=== PATIENT | male | born 1965 | race Caucasian/White ===

== ENCOUNTER → 2018-11-20 08:35 | Outpatient (CLI) | payer BC, SELFPAY ==
--- NOTE | 2018-11-20 08:52 | EKG12_ITS ---
Test Reason : PRE-OP Blood Pressure : / mmHG Vent. Rate : 064 BPM Atrial Rate : 064 BPM P-R Int : 176 ms QRS Dur : 100 ms QT Int : 412 ms P-R-T Axes : 024 -18 000 degrees QTc Int : 425 ms Normal sinus rhythm Moderate voltage criteria for LVH, may be normal variant Borderline ECG Confirmed by SAUL ORLANDO ([id number]), editor news DENYS MIRANDA ([id number]) on 11/24/2018 2:20:47 PM Referred By: Jagdeep Perry Confirmed By:JACKSON ORLANDO
[2018-11-20 09:18] LABS: Hematocrit 43.4 % (40-54); Hemoglobin 15.5 g/dl (13.0-16.5); Mean Corp Hgb Conc 35.7 g/gl (32-36); Mean Corpuscular Hgb 31.2 pg (27.0-32.0); Mean Corpuscular Volume 87.3 fL (80-94); Mean Platelet Vol. 9.1 fl (6.2-12.0); Platelet Count 349 K/mm3 (150-450); RBC Distribution Width CV 13.2 % (11.6-14.6); RBC Distribution Width SD 41.7 fl (35.1-43.9); Red Blood Count 4.97 M/mm3 (4.6-6.2); Scan Indicated on CBC? Y/N NO; White Blood Count 7.5 K/mm3 (4.4-11.0)
[2018-11-20 09:45] LABS: Anion Gap 7 (5-15); BUN 17 mg/dL (7-18); BUN/Creat Ratio 18.3 RATIO (10-20); Calcium,Total 8.8 mg/dL (8.5-10.1); Chloride 107 mmol/L (98-107); Creatinine, Serum 0.93 mg/dL (0.70-1.30); EST Glomerular Filtration Rate 89 mL/min (>60); Est Glom Filt Rate - Afr Amer 108 mL/min (>60); Glucose 110 mg/dL (74-106); PSA,Total- Diagnostic 0.33 ng/mL (0.0-4.0); Sodium Level 141 mmol/L (136-145)
== END ==
PROVIDERS: Family Provider Preventive Medicine Occupational Medicine; PCP Preventive Medicine Occupational Medicine; Referring Provider Urology; Visit Provider Urology
DX: N43.40 Spermatocele of epididymis, unspecified (principal)
CPT/HCPCS: 36415; 80048; 84153; 85027; 93005

== ENCOUNTER → 2022-11-06 | Outpatient (CLI) | payer OTHER, SELFPAY ==
--- NOTE | 2022-11-06 16:59 | MRI_ITS ---
STUDY: MRI LUMBAR SPINE WITHOUT CONTRAST REASON FOR EXAM: Male, 57 years old. LBP,RADICULOPATHY TECHNIQUE: Standardized fat and water weighted pulse sequences were obtained in the sagittal and axial planes. COMPARISON: None FINDINGS: T12-L1: Normal endplates. Normal disc height, hydration and morphology. Normal bilateral facet joints. Normal central canal and bilateral lateral recesses. Normal bilateral intervertebral neural foramina. Normal lumbar lordosis. There is no substantial scoliosis. Normal conus medullaris that terminates at the T12. No evidence of increased or osseous signal to suggest osseous injury. L1-2: Disc desiccation and mild decreased disc space is present. No significant disc bulge, spinal canal narrowing or foraminal narrowing. L2-3: Disc desiccation and preserved disc space with minimal circumferential disc bulge and facet arthropathy resulting in minimal spinal canal narrowing. No significant foraminal narrowing. L3-4: Disc desiccation and minimal circumferential disc bulge with noted facet hypertrophy and ligamentum flavum hypertrophy resulting in severe spinal canal narrowing and lateral recess narrowing. No significant foraminal narrowing. L4-5: Disc desiccation and mild decreased disc space is present with circumferential disc bulge and minimal small midline annular fissure. There is facet arthropathy and ligamentum flavum arthropathy resulting in severe spinal canal narrowing with mild left foraminal narrowing. L5-S1: Disc desiccation and decreased disc space with broad-based disc bulge resulting in mild bilateral foraminal narrowing with no significant spinal canal narrowing. Normal visualized sacral ala. Normal visualized paraspinous soft tissue structures. MRI/Spine Lumbar (Routine) IMPRESSION: 1. L4-5 circumferential disc bulge and facet arthropathy/hypertrophy resulting in severe spinal canal narrowing, clinically correlate for descending L4 radiculopathy. 2. L3-4 severe spinal canal narrowing and lateral recess narrowing due to facet hypertrophy/ligamentum flavum arthropathy, clinically correlate for descending L3 radiculopathy. Additional degenerative changes as above. Electronically Signed: Bishop Miller DO at 16:57 EDT ,
== END | disposition home or self-care (01) ==
LOC: MRI 16:57
PROVIDERS: PCP Preventive Medicine Occupational Medicine; Visit Provider Preventive Medicine Occupational Medicine
DX: M54.16 Radiculopathy, lumbar region (principal); G95.19 Other vascular myelopathies
CPT/HCPCS: 72148

== ENCOUNTER → 2023-07-22 | Outpatient (CLI) | payer OTHER, SELFPAY ==
[2023-07-22 08:56] LABS: Hematocrit 42.4 % (40-54); Hemoglobin 14.7 g/dL (13.0-16.5); Mean Corp Hgb Conc 34.7 g/dL (32-36); Mean Corpuscular Hgb 31.3 pg (27.0-32.0); Mean Corpuscular Volume 90.2 fL (80-94); Platelet Count 335 K/mm3 (150-450); RBC Distribution Width CV 12.2 % (11.6-14.6); RBC Distribution Width SD 40.2 fl (35.1-43.9); White Blood Count 7.7 K/mm3 (4.4-11.0)
[2023-07-22 10:08] LABS: ALB/GLOB Ratio 1.2 RATIO (0.9-2.4); AST(SGOT) 14 U/L (15-37); Alanine Aminotransfer ALT/SGPT 29 U/L (16-61); Albumin, Serum 3.7 g/dL (3.2-5.0); Alkaline Phosphatase 79 U/L (45-117); Anion Gap 6 (5-15); BUN 23 mg/dL (7-18); BUN/Creat Ratio 27.3 RATIO (10-20); Calcium,Total 9.3 mg/dL (8.5-10.1); Chloride 111 mmol/L (98-107); Cholesterol 204 mg/dL (200); Creatinine, Serum 0.84 mg/dL (0.70-1.30); EST Glomerular Filtration Rate 99 mL/min (>60); Est Glom Filt Rate - Afr Amer 119 mL/min (>60); Globulin 3.2 g/dL (2.2-4.2); Glucose 116 mg/dL (74-106); High Density Lipoprotein 49 mg/dL; PSA,Total - Annual Screen 0.45 ng/mL (0.00-4.00); Protein, Total 6.9 g/dL (6.4-8.2); Sodium Level 140 mmol/L (136-145); Triglycerides 184 mg/dL; Very Low Density Lipoprotein 37 mg/dL (5-40)
== END | disposition home or self-care (01) ==
LOC: LAB 08:09
PROVIDERS: PCP Preventive Medicine Occupational Medicine; Referring Provider Preventive Medicine Occupational Medicine; Visit Provider Preventive Medicine Occupational Medicine
DX: Z12.5 Encounter for screening for malignant neoplasm of prostate (principal); I10 Essential (primary) hypertension; Z13.220 Encounter for screening for lipoid disorders
CPT/HCPCS: 36415; 80053; 80061; 84153; 85027; G0103

== ENCOUNTER 2023-08-15 05:52 | Inpatient (IN) | payer OTHER, SELFPAY ==
--- NOTE | 2023-07-31 07:50 | RAD_ITS ---
STUDY: XR Chest 2 Views 07/31/2023 7:58 AM REASON FOR EXAM: Male, 58 years old. PREOP COMPARISON: None TECHNIQUE: XR Chest 2 Views FINDINGS: There is no demonstrated pleural abnormality. Normal heart size. Normal mediastinum. Normal masoud. Prominent appearing increased interstitial lung markings. Normal visualized pulmonary arteries. There is atherosclerotic calcification of the aortic arch with tortuosity. There are diffuse degenerative changes of the visualized thoracic spine. There is degenerative osteoarthritis of the bilateral shoulders. There are no acute findings of the upper abdomen. RAD/Chest PA and Lateral IMPRESSION: There are no acute findings. Electronically Signed: Kayden Nance MD at 8:31 EST ,
[2023-07-31 08:38] LABS: Partial Thromboplast Time 25.8 Seconds (24.1-36.2)
[2023-07-31 08:41] LABS: International Normalized Ratio 1.1
--- NOTE | 2023-08-08 06:45 | PCM.HP.BLA ---
History and Physical History and Physical? Patient Name: Javy Wolf : 1965 From:? MAC TOLLIVER PA-C? DATE OF PRE-OPERATIVE EXAM: 08/07/2023 DATE OF SURGERY:? 08/15/2023 SCHEDULED PROCEDURE:? Lumbar 3-lumbar 4, lumbar 4-lumbar 5 posterior lumbar interbody fusion, decompression, posterior spinal fusion with instrumentation and use of allograft HISTORY OF PRESENT ILLNESS: This is a 57-year-old male who is been having ongoing low back pain for several years.? He is getting paresthesias radiating into the bilateral lower extremities.? He has been followed and treated by Dr. Edwin Alarcon with conservative measures.? Patient gets episodic pain throughout the lumbar region that is worse with activities.? Paresthesias in the bilateral posterior thighs and calf regions with prolonged sitting.? He denies any acute loss of bowel or bladder control.? He has tried oral medications including Tylenol and diclofenac.? He has been through formal physical therapy.? He has had 2 previous caudal epidural steroid injections by Dr. Edwin Alarcon on November 27, 2022 and February 08, 2023.? Patient has also attempted Medrol Dosepak with minimal relief.? Despite conservative measures patient has continued to have ongoing symptoms.? After failing conservative measures and discussing all treatment options with Dr. Edwin Alarcon, the patient would like to proceed with the above surgical intervention.? Patient has medical history pertinent for hypertension.? He denies any recent chest pain, shortness of breath, fevers chills or recent infections.? He denies past history of DVT or pulmonary embolisms.? He has obtain surgical clearance from Dr. Crane and has had preoperative lab work and EKG testing. REVIEW OF SYSTEMS: Review Of Systems: Constitutional: Denies anorexia, anxiety, change in appetite, fever, difficulty sleeping, weight change. Cardiovasular: Denies chest pain, heart murmur, irregular heartbeat and peripheral vascular disease. Respiratory: Denies asthma, cough, pneumonia, sleep apnea, shortness of breath, tuberculosis and wheezing. Gastrointestinal: Denies constipation, diarrhea, heartburn, nausea, rectal itching, bloody stools and vomiting. Genitourinary: Denies incontinence. Musculoskeletal: Reports gait disturbance, pain, trouble walking and weakness. Skin: Denies Raynaud's, history of shingles and tattoo. Neurological: Reports numbness/tingling but denies ambulatory dysfunction, dizziness and tremor. Psychiatric: Denies anxiety, depression, insomnia, mental illness and stress. Hematologic/Lymphatic: Denies anemia, bleeding/bruising tendency and past transfusion. Reviewed, no changes. PAST MEDICAL HISTORY: Advance Care Plan: No Advance Directives Effective Date: 11/23/2022 Past Medical History: Medical Problems: High Blood Pressure Accidents: Fracture - (1979) RT WRIST? Sports Related Injury - BILAT KNEE RT SHOULDER RT ANKLE Surgical Hx: Arthroscopy - (1995) LT KNEE Rotator Cuff Repair-RT - (2004) Knee Replacement RT - (2019) [facility]? Knee Arthroscopy LT - (1996) [facility] MULTIPLE SURGERY Knee Arthroscopy RT - (1996) [facility] MULTIPLE SURGERIES? Shoulder Arthroscopy LT - (1996) [facility] MULTIPLE SURGERIES? Shoulder Arthroscopy RT - (1996) [facility] MULTIPLE SURGERIES? ACL Repair - (1996) [facility] Caudal Epidural Steroid Injection - (11/27/2022) Dr Nena Alarcon @ [facility] Caudal Epidural Steroid Injection - (02/08/2023) Dr Nena Alarcon @ [facility] Hernia Repair - (1996) [facility] Anesthesia Complications: None Assistive Devices: Glasses Reviewed and updated. SOCIAL HISTORY: Social History: Marital: .Occupation: [employer].Work Status: Currently Working.Hand Dominance: Right-Handed. Personal Habits:? Cigarette Use: Never Smoked Cigarettes.Smokeless Tobacco: Never Used Smokeless Tobacco.E-Cigarette Use: Never used.Alcohol: Occasionally.Drug Use: Denies Use.Enjoy Exercising: Exercises 1-3 X/Week. Reviewed, no changes. VITALS: Ht: 73.3 Wt: 236lb Wt k.050 BMI: 30.9 BP: 140/86 Pulse: 70 Resp: 14 T: 97.9 T: 36.6C Pain Level: 6 O2SatR: 98 ALLERGIES: No Known Drug Allergy? MEDICATIONS: Losartan Potassium 100 mg take 1 tablet by mouth every day, Amlodipine Besylate 2.5 mg take 1 tablet by mouth at bedtime PRE-OP EXAM:? General appearance:NORMAL? ? ? Other: Eyes: Conjunctivae and lids: NORMAL? Pupils: ERR Ears, Nose, Mouth, and Throat: NORMAL? Other: Inspection of lips, teeth and gums: NORMAL? ?Other: Neck: Examination of neck: no masses noted. Respiratory: Assessment of respiratory effort: NORMAL? ?Other: ?Auscultation of lungs: clear to auscultation no wheezes, rhonchi or rales. Cardiovascular:? Auscultation of heart: regular rate and rhythm, no murmurs, gallops or rubs. PHYSICAL EXAMINATION: On exam this is a pleasant 58-year-old male in no acute distress.? He does have tenderness to palpation throughout the lumbar spine.? He does continue to have paresthesias in the lower extremity.? Increased pain with lumbar flexion, extension and rotation. IMAGING STUDIES: X-rays of the lumbar spine reveals mild scoliotic form of the lumbar spine about 10 apex right at L4 no gross instability.? Degenerative changes at multiple levels with loss of disc height, disc osteophyte complex and facet arthrosis. Previous MRI of the lumbar spine shows L5-S1 moderate loss of disc height and signal with minimal posterior disc bulge with mild facet arthrosis and minimal subarticular stenosis.? L4-L5 there is severe loss of disc height and signal with broad posterior disc bulge and severe central canal stenosis.? There is severe facet arthrosis and severe subarticular stenosis with mild foraminal stenosis.? L3-L4 there is moderate to severe loss of disc height and signal with mild posterior disc bulge with severe central canal stenosis and severe facet arthrosis and severe some articular stenosis.? L2-L3 and L1-L2 minimal loss of disc height and signal with minimal posterior disc bulge but no central canal stenosis. IMPRESSION: 1.? Lumbar degenerative disc disease with stenosis with radiculopathy 2.? Hypertension 3.? Obesity with BMI 30.9 PLAN: Dr. Edwin Alarcon did discuss and review with the patient all treatment options including surgical versus nonsurgical options.? Patient does wish to proceed with the above-stated procedure.? Potential risks, benefits, and complications of the procedure were discussed in detail including but not limited to , infection, nerve and blood vessel damage, persistent pain, numbness, tingling, paresthesias, blood clot, pulmonary embolism, and requirement for possible further surgery.? The patient expressed full understanding and has no further questions for the doctor.? Patient does agree to proceed with the above-stated procedure and has signed the surgery consent form. POST-OP MEDICATION PLAN: Pain Medications: Postoperative pain regimen will be initiated by Dr. Edwin Alarcon at the hospital.? Patient also has a lumbar back brace that he was instructed to bring to day of surgery.? Patient was also instructed no nonsteroidal anti-inflammatories 1 week prior to surgery and 12 weeks following surgery. This dictation was created using voice recognition software. Phonetic and/or grammatical errors may exist. ___? I have re-examined the patient.? There are no clinical changes since date of exam. ___? See progress notes for changes. ___? Dictated on admission Date: ? ? ?Time: Signature:
[2023-08-15] VITALS (16 sets, daily range): BP systolic 81–131; BP diastolic 54–98; PULSE 71–99; RESP 15–18; TEMP 36.1–36.9; O2SAT 92–98; BMI 29.9
--- OUTSIDE RECORDS SUMMARY | 2023-08-15 05:55 | XMS RPT_ITS | CCD ---
Author Name Unknown Address [address] [place] [address] Organization [facility] Care Team Providers Care Paediatric Physiotherapist Name Role Phone NENO JIM Unavailable Unavailable MENDY JACOBO (ELMER) Unavailable Unavailable MENDY JACOBO (ELMER) Unavailable Unavailable NENO JIM Unavailable Unavailable NENO JIM Unavailable Unavailable JERRY CRANE DO Primary Care Physician [phone] Jerry Crane Primary Care Provider [phone] Medications Current Medications Medication Drug Class(es) Dates Sig (Normalized) Sig (Original) Albuterol (Eqv-Proventil HFA) 90 mcg/inh inhalation aerosol (1 source) Start: 09-29-2021 take 2 puff(s) by mouth every four to six hours Albuterol (Eqv-Proventil HFA) 90 mcg/inh inhalation aerosol INHALE 2 PUFFS BY MOUTH EVERY 4 TO 6 HOURS Start Date: 09/29/21 Status: Ordered ibuprofen 600 mg oral tablet (1 source) Nonsteroidal Anti-inflammatory Drug Start: 12-02-2020 ibuprofen 600 mg oral tablet Dose : 600 mg = 1 tab(s), Oral, QID, PRN Pain, # 120 tab(s), 2 Refill(s), Pharmacy: [facility], 186, cm, 12/02/20 15:37:00 EDT, Height, kg, 12/02/20 15:37:00 EDT, Dosing Weight Start Date: 12/02/20 Status: Ordered meloxicam 15 mg oral tablet (1 source) Nonsteroidal Anti-inflammatory Drug Start: 12-05-2021 End: 01-04-2022 Mobic 15 mg oral tablet Dose : 15 mg = 1 tab(s), Oral, qDay, # 30 tab(s), 0 Refill(s), Pharmacy: [facility]/pharmacy #[id number], Lumbar back pain with radiculopathy affecting lower extremity, 184.5, cm, 12/05/21 16:22:00 EDT, Height Start Date: 12/05/21 Stop Date: 01/04/22 Status: Ordered Completed/Discontinued Medications Medication Drug Class(es) Dates Sig (Normalized) Sig (Original) amoxicillin 500 mg oral tablet (1 source) Penicillin-class Antibacterial Start: 12-10-2018 Amoxicillin 500 mg tablet Indications: Status post total knee replacement, unspecified laterality Take 4 tabs, 2000 mg, 1 hour prior to dental procedure. 4 tablet 2 12/10/2018 Active Problems Active Problems Problem Classification Problem Date Documented Da te Episodic/Chronic Essential hypertension (1 source) Essential hypertension 04-10-2019 Chronic Open wounds of head; neck; and trunk (1 source) Scalp laceration; Translations: [Laceration without foreign body of scalp, initial encounter] Episodic Osteoarthritis (2 sources) Unilateral primary osteoarthritis, left knee; Translations: [Osteoarthritis of right knee joint] Onset: 10-17-2015 10-17-2015 Chronic Other circulatory disease (1 source) Elevated blood-pressure reading, without diagnosis of hypertension; Translations: [Elevated blood-pressure reading, without diagnosis of hypertension] Onset: 06-25-2018 Episodic Other connective tissue disease (1 source) Presence of left artificial knee joint; Translations: [Presence of left artificial knee joint] Onset: 07-02-2018 Chronic Other connective tissue disease (1 source) History of left total knee replacement; Translations: [Presence of left artificial knee joint] Onset: 07-21-2018 07-21-2018 Chronic Other connective tissue disease (1 source) Cramp in lower limb 12-02-2020 Episodic Other connective tissue disease (1 source) Dupuytren's contracture 04-10-2019 Episodic Other male genital disorders (1 source) 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 Pneumonia (except that caused by tuberculosis or sexually transmitted disease) (1 source) Pneumonia 11-10-2021 Episodic Spondylosis; intervertebral disc disorders; other back problems (1 source) Low back pain 12-05-2021 Episodic Unclassified (5 sources) Patient encounter status 03-04-2020 Past or Other Problems Problem Classification Problem Date Documented Da te Episodic/Chronic Joint disorders and dislocations; trauma-related (1 source) Acute meniscal tear, medial; Translations: [Complex tear of medial meniscus, current injury, right knee, initial encounter] Onset: 10-17-2015 10-17-2015 Episodic Other circulatory disease (1 source) Elevated blood-pressure reading without diagnosis of hypertension; Translations: [Elevated blood-pressure reading, without diagnosis of hypertension] Onset: 06-25-2018 06-25-2018 Episodic Other non-traumatic joint disorders (1 source) Pain in left knee; Translations: [Pain in joint, lower leg] Onset: 12-01-2015 12-01-2015 Episodic Results Test Name Value Interpretation Reference Range Facil ity Vital Signs Date Time Vital Sign Value Performing Clinician Stuart boykin 01-12-2022 15:30-0400 Body temperature 97.81 [degF] Raine Alejandre APRN.CNP Work Phone: [facility] 01-12-2022 15:30-0400 Body weight 102.69 kg Raine Alejandre APRN.[employer] Work Phone: [facility] 01-12-2022 15:30-0400 Diastolic blood pressure 84 mm[Hg] Raine Alejandre APRN.[employer] Work Phone: [facility] 01-12-2022 15:30-0400 Heart rate 95 /min Raine Alejandre APRN.[employer] Work Phone: [facility] 01-12-2022 15:30-0400 Respiratory rate 20 /min Raine Alejandre APRN.[employer] Work Phone: [facility] 01-12-2022 15:30-0400 SaO2% (BldA) [Mass fraction] 97 % Raine Alejandre APRN.[employer] Work Phone: [facility] 01-12-2022 15:30-0400 Systolic blood pressure 138 mm[Hg] Raine Alejandre APRN.CNP Work Phone: [facility] Encounters Encounter Date Encounter Type Care Provider Facility Start: 01-12-2022 End: 01-12-2022 Patient encounter procedure Raine Alejandre APRN.[employer] Work Phone: [facility] Procedures Date Procedure Procedure Detail Performing Clinician Start: 07-02-2018 Arthroplasty of knee RI PRITIAbe ROMERO GUITAR TEACHER - [employer] Plan of Treatment Date Care Activity Detail Author Start: 01-13-2032 Urine microalbumin profile DTA P,TDAP,TD (2 - Td or Tdap) [facility] Start: 03-15-2022 Influenza vaccination INFLUENZA (#1) [facility] Start: 07-03-2021 DIABETES SCREEN DIABETES SCREEN [facility] Start: 03-30-2021 COVID-19 VACCINE (3 - Booster for Pfizer series) COVID-19 VACCINE (3 - Booster for Pfizer series) [facility] Start: 2018 PROSTATE CANCER SCRE ENING DISCUSSION PROSTATE CANCER SCREENING DISCUSSION [facility] Start: 2013 SHINGRIX VACCINE (1 of 2) SHINGRIX V ACCINE (1 of 2) [facility] Start: 2008 COLOGUARD (FIT-DNA) COLOGUARD (FIT-D NA) [facility] Start: 2008 Colonoscopy COLONOSCOPY [facility] Start: 2008 COLORECTAL CANCER SCREENING COLORECTAL CANCER SCREENING [facility] Start: [address] COLONOGRAPHY [facility] Start: 2008 FECAL OCCULT BLOOD FECAL OCCULT BLOO D [facility] Start: 2008 SIGMOIDOSCOPY SIGMOIDOSCOPY [facility] Start: 1998 LIPID SCREEN LIPID SCREEN [facility] Start: 1981 HEPATITIS C SCREENING HEPATITIS C SC REENING [facility] Start: 1981 HIV SCREENING HIV SCREENING [facility] Start: 1975 Adult depression scr eening assessment DEPRESSION SCREENING [facility] Immunizations Immunization Date Immunization Notes Care Provider Fa lora 01-12-2022 tetanus toxoid, redu rima diphtheria toxoid, and acellular pertussis vaccine, adsorbed Raine Alejandre APRN.[employer] Work Phone: [facility] 03-01-2021 pneumococcal conjuga te vaccine, 13 valent LEAH ROMERO APRN - [employer] [facility] 10-28-2020 SARS-CoV-2 mRNA (tozinameran) vaccine LEAH ROMERO GUITAR TEACHER - [employer] [facility] 10-07-2020 SARS-CoV-2 mRNA (tozinameran) vaccine LEAH ROMERO GUITAR TEACHER - [employer] [facility] 05-21-2017 influenza virus vacc ine, unspecified formulation LEAH ROMERO GUITAR TEACHER - [employer] [facility] 09-11-2010 Human Papillomavirus Quadval LEAH ROMERO GUITAR TEACHER - [employer] [facility] 05-08-2010 Human Papillomavirus Quadval LEAH ROMERO GUITAR TEACHER - [employer] [facility] 02-25-2010 Human Papillomavirus Quadval LEAH ROMERO GUITAR TEACHER - [employer] [facility] 01-24-2010 tetanus toxoid, redu rima diphtheria toxoid, and acellular pertussis vaccine, adsorbed LEAH ROMERO GUITAR TEACHER - [employer] [facility] 06-01-2009 influenza virus vacc ine, H1N1, live LEAH ROMERO GUITAR TEACHER - [employer] [facility] 10-27-2002 measles/mumps/rubell a virus vaccine LEAH ROMERO GUITAR TEACHER - [employer] [facility] 10-27-2002 poliovirus vaccine, inactivated LEAH ROMERO GUITAR TEACHER - [employer] [facility] 02-08-2000 diphtheria, tetanus toxoids and acellular pertussis vaccine, unspecified formulation LEAH ROMERO GUITAR TEACHER - [employer] [facility] 02-08-2000 haemophilus influenz ae type b vaccine, PRP-T conjugate ELAH ROMERO GUITAR TEACHER - [facility] 02-08-2000 poliovirus vaccine, inactivated LEAH ROMERO GUITAR TEACHER - [employer] [facility] 07-27-1998 hepatitis B pediatri c vaccine LEAH ROMERO GUITAR TEACHER - [facility] 07-27-1998 measles/mumps/rubell a virus vaccine LEAH ROMERO GUITAR TEACHER - [facility] 11-24-1997 diphtheria, tetanus toxoids and acellular pertussis vaccine, unspecified formulation LEAH ROMERO GUITAR TEACHER - [facility] 11-24-1997 haemophilus influenz ae type b vaccine, HbOC conjugate LEAH ROMERO GUITAR TEACHER - [employer] [facility] 09-13-1997 diphtheria, tetanus toxoids and acellular pertussis vaccine, unspecified formulation LEAH ROMERO GUITAR TEACHER - [employer] [facility] 09-13-1997 haemophilus influenz ae type b vaccine, HbOC conjugate LEAH ROMERO GUITAR TEACHER - [employer] [facility] 09-13-1997 poliovirus vaccine, inactivated LEAH ROMERO GUITAR TEACHER - [employer] [facility] 07-22-1997 diphtheria, tetanus toxoids and acellular pertussis vaccine, unspecified formulation LEAH ROMERO GUITAR TEACHER - [employer] [facility] 07-22-1997 haemophilus influenz ae type b vaccine, HbOC conjugate LEAH ROMERO GUITAR TEACHER - [employer] [facility] 07-22-1997 hepatitis B pediatri c vaccine LEAH ROMERO GUITAR TEACHER - [employer] [facility] 07-22-1997 poliovirus vaccine, inactivated LEAH ROMERO GUITAR TEACHER - [employer] [facility] 05-27-1997 hepatitis B pediatri c vaccine LEAH ROMERO GUITAR TEACHER - [employer] [facility] Payers Date Payer Category Payer Unknown MMO MMO [employer] [id number] 2019-Present [phone] [address] [place] [address] O [id number] Social History Date Type Detail Facility Start: 08-11-2015 End: 04-10-2019 Tobacco smoking status Never smoked tobacco (finding) [facility] Sex Assigned At Male [facility] Start: 08-11-2015 Tobacco use and exposure Smokeless tobacco non-user [facility] Start: 01-12-2022 Alcohol intake Current drinke r of alcohol (finding) [facility] Start: 06-25-2018 History SDOH Alcohol Comment a few beers a month [facility] Start: 1965 Sex Assigned At Not on file [facility] Start: 01-02-2022 End: 01-12-2022 Exposure to SARS-CoV-2 (event) Not sure [facility] Work Phone: Medical Equipment Procedure Code Equipment Code Equipment Origin al Text Equipment Identifier Dates Component Tritan ium 38mm Metal 11mm Patellar Asymmetric Knee - [id number] Start: 07-02-2018 Insert Triathlon 6 X3 11mm Tibial Condylar Stabilized Knee - [id number] Start: 07-02-2018 Component Triath rené 6 Pa Femoral Cruciate Retain Bead Knee Left - [id number] Start: 07-02-2018 Baseplate Triath rené 6 Tritanium [id number] Tibial 4 Cruciform Peg Keel Knee - [id number] Start: 07-02-2018 Progress note 01-20-2022 Note Date & Type Note Facility 01-20-2022 Note HNO ID: [id number] Author: José Miguel Verdugo APRN.[employer] Service: ? Author Type: Nurse Practitioner Type: Progress Notes Filed: 01/20/2022 9:34 AM Note Text: Subjective HPI HPI Katy Wolf is a 56 year old male who presents today for staple removal from head. Placed 8 days ago. Patient report doing well. Denies fever, drainage from site. .Patient presents with: Suture Removal: staple removal from head, 4 ryder placed 8 days ago PAST MEDICAL HISTORY Diagnosis Date - Elevated BP without diagnosis of hypertension 06/25/2018 - Osteoarthritis of right knee 10/17/2015 - Primary osteoarthritis of left knee 10/17/2015 PAST SURGICAL HISTORY Procedure Laterality Date - ARTHRS KNE SURG W/MENISCECTOMY MED/LAT W/SHVG Right 10/21/2015 Right knee arthroscopy - ARTHRS KNEE DEBRIDEMENT/SHAVING ARTCLR CRTLG Right 10/21/2015 Medial and PF chondroplasties - PAST SURGICAL HISTORY OF Bilateral Bilateral shoulder arthroscopy - PAST SURGICAL HISTORY OF Bilateral Bilateral knee arthroscopy ALLERGIES Patient has no known allergies. MEDICATIONS losartan (COZAAR) 100 mg tablet Take 100 mg by mouth once daily. Amoxicillin 500 mg tablet Take 4 tabs, 2000 mg, 1 hour prior to dental procedure. lisinopril (ZESTRIL, PRINIVIL) 20 mg tablet Take 20 mg by mouth once daily. HYDROmorphone (DILAUDID) 2 mg tablet Take 1-2 tablets by mouth every 4 hours as needed for Pain (post op acute pain) for up to 7 days. Patient had orthopedic surgery, and will require greater than 30 MEDD to treat post operative pain (ICD-10 code G89.18).Earliest Fill Date: 07/10/18 aspirin, enteric coated (ASPIRIN, ENTERIC COATED) 325 mg EC tablet Take 1 tablet by mouth twice daily. FAMILY HISTORY Problem Relation Age of Onset - Diabetes Father IDDM - Arthritis Mother - other (heart murmur) Mother Social History Tobacco Use - Smoking status: Never Smoker - Smokeless tobacco: Never Used Vaping Use - Vaping Use: Never used Substance Use Topics - Alcohol use: Yes Comment: a few beers a month - Drug use: No ROS Objective Blood pressure 148/98, pulse 80, temperature 36.4 ?C (97.5 ?F), resp. rate 16, weight 104.3 kg (230 lb), SpO2 97 %. Physical Exam Constitutional: General: He is not in acute distress. Appearance: He is not toxic-appearing or diaphoretic. HENT: Head: Normocephalic and atraumatic. Pulmonary: Effort: Pulmonary effort is normal. No accessory muscle usage or respiratory distress. Neurological: Mental Status: He is alert and oriented to person, place, and time. ASSESSMENT/PLAN: 1. Encounter for staple removal - ICD9: V58.32, ICD10: Z48.02 Successful removal of ryder F/u for s/s infection/changing symptoms José Miguel Verdugo APRN.[employer] [facility] Progress note 01-12-2022 Note Date & Type Note Facility 01-12-2022 Note HNO ID: [id number] Author: Raine Alejandre APRN.[employer] Service: ? Author Type: Nurse Practitioner Type: Progress Notes Filed: 01/12/2022 4:10 PM Note Text: Subjective Katy Wolf is a 56 year old male who presents with a scalp laceration that occurred today. He reports he was putting up new stairs when they fell onto the top of his head. Denies LOC, dizziness, or confusion. Last tetanus immunization was in 2009. Review of Systems HENT: See HPI Musculoskeletal: Negative for back pain and neck pain. Neurological: Negative for dizziness, loss of consciousness and headaches. BP 138/84 Pulse 95 Temp 36.6 ?C (97.8 ?F) Resp 20 Wt 102.7 kg (226 lb 6.4 oz) SpO2 97% BMI 29.88 kg/m? PAST MEDICAL HISTORY Diagnosis Date - Elevated BP without diagnosis of hypertension 06/25/2018 - Osteoarthritis of right knee 10/17/2015 - Primary osteoarthritis of left knee 10/17/2015 PAST SURGICAL HISTORY Procedure Laterality Date - ARTHRS KNE SURG W/MENISCECTOMY MED/LAT W/SHVG Right 10/21/2015 Right knee arthroscopy - ARTHRS KNEE DEBRIDEMENT/SHAVING ARTCLR CRTLG Right 10/21/2015 Medial and PF chondroplasties - PAST SURGICAL HISTORY OF Bilateral Bilateral shoulder arthroscopy - PAST SURGICAL HISTORY OF Bilateral Bilateral knee arthroscopy ALLERGIES Patient has no known allergies. MEDICATIONS losartan (COZAAR) 100 mg tablet Take 100 mg by mouth once daily. Amoxicillin 500 mg tablet Take 4 tabs, 2000 mg, 1 hour prior to dental procedure. lisinopril (ZESTRIL, PRINIVIL) 20 mg tablet Take 20 mg by mouth once daily. HYDROmorphone (DILAUDID) 2 mg tablet Take 1-2 tablets by mouth every 4 hours as needed for Pain (post op acute pain) for up to 7 days. Patient had orthopedic surgery, and will require greater than 30 MEDD to treat post operative pain (ICD-10 code G89.18).Earliest Fill Date: 07/10/18 aspirin, enteric coated (ASPIRIN, ENTERIC COATED) 325 mg EC tablet Take 1 tablet by mouth twice daily. FAMILY HISTORY Problem Relation Age of Onset - Diabetes Father IDDM - Arthritis Mother - other (heart murmur) Mother Social History Tobacco Use - Smoking status: Never Smoker - Smokeless tobacco: Never Used Vaping Use - Vaping Use: Never used Substance Use Topics - Alcohol use: Yes Comment: a few beers a month - Drug use: No Objective Physical Exam Vitals and nursing note reviewed. Constitutional: Appearance: Normal appearance. HENT: Head: Eyes: Pupils: Pupils are equal, round, and reactive to light. Cardiovascular: Rate and Rhythm: Normal rate. Pulmonary: Effort: Pulmonary effort is normal. Musculoskeletal: Cervical back: Normal range of motion. Skin: General: Skin is warm. Findings: Laceration present. Neurological: Mental Status: He is alert and oriented to person, place, and time. Motor: Motor function is intact. Gait: Gait is intact. Wound cleansed with peroxide and all visible foreign material was removed. Surgicel placed in laceration due to bleeding. Wound edges reapproximated with 4 ryder. Return for staple removal in 5-7 days. ASSESSMENT/PLAN: 1. Laceration of scalp, initial encounter - ICD9: 873.0, ICD10: S01.01XA - Return for staple removal in 5-7 days. - Discussed red flag symptoms to report to ER for head injury as well as signs/sympotms of infection. - TDAP VACCINE AGE 7+ IM TERRY Marquez student TEACHING PROVIDER (Physician/PA/GUITAR TEACHER) NOTE OF PERSONAL INVOLVEMENT IN CARE: I have personally seen and examined the patient and performed the medical decision-making components. I have reviewed the Advanced Practice Registered Nurse (GUITAR TEACHER) Student's documentation and verified the findings in the note as written. Any additions or changes are noted in bold/italics. Signature: Raine Alejandre Date: 01/12/2022 Time: 4:07 PM [facility] History of Present illness Narrative 01-12-2022 Raine Alejandre APRN.[employer] - 01/12/2022 3:49 PM EDT Note Date & Type Note Facility 01-12-2022 History of Presen t illness Narrative Images from the original note were not included. Subjective Katy Wolf is a 56 year old male who presents with a scalp laceration that occurred today. He reports he was putting up new stairs when they fell onto the top of his head. Denies LOC, dizziness, or confusion. Last tetanus immunization was in 2009. Review of Systems HENT: See HPI Musculoskeletal: Negative for back pain and neck pain. Neurological: Negative for dizziness, loss of consciousness and headaches. BP 138/84 Pulse 95 Temp 36.6 C (97.8 F) Resp 20 Wt 102.7 kg (226 lb 6.4 oz) SpO2 97% BMI 29.88 kg/m PAST MEDICAL HISTORY Diagnosis Date Elevated BP without diagnosis of hypertension 06/25/2018 Osteoarthritis of right knee 10/17/2015 Primary osteoarthritis of left knee 10/17/2015 PAST SURGICAL HISTORY Procedure Laterality Date ARTHRS KNE SURG W/MENISCECTOMY MED/LAT W/SHVG Right 10/21/2015 Right knee arthroscopy ARTHRS KNEE DEBRIDEMENT/SHAVING ARTCLR CRTLG Right 10/21/2015 Medial and PF chondroplasties PAST SURGICAL HISTORY OF Bilateral Bilateral shoulder arthroscopy PAST SURGICAL HISTORY OF Bilateral Bilateral knee arthroscopy ALLERGIES Patient has no known allergies. MEDICATIONS losartan (COZAAR) 100 mg tablet Take 100 mg by mouth once daily. Amoxicillin 500 mg tablet Take 4 tabs, 2000 mg, 1 hour prior to dental procedure. lisinopril (ZESTRIL, PRINIVIL) 20 mg tablet Take 20 mg by mouth once daily. HYDROmorphone (DILAUDID) 2 mg tablet Take 1-2 tablets by mouth every 4 hours as needed for Pain (post op acute pain) for up to 7 days. Patient had orthopedic surgery, and will require greater than 30 MEDD to treat post operative pain (ICD-10 code G89.18).Earliest Fill Date: 07/10/18 aspirin, enteric coated (ASPIRIN, ENTERIC COATED) 325 mg EC tablet Take 1 tablet by mouth twice daily. FAMILY HISTORY Problem Relation Age of Onset Diabetes Father IDDM Arthritis Mother other (heart murmur) Mother Social History Tobacco Use Smoking status: Never Smoker Smokeless tobacco: Never Used Vaping Use Vaping Use: Never used Substance Use Topics Alcohol use: Yes Comment: a few beers a month Drug use: No Objective Physical Exam Vitals and nursing note reviewed. Constitutional: Appearance: Normal appearance. HENT: Head: Eyes: Pupils: Pupils are equal, round, and reactive to light. Cardiovascular: Rate and Rhythm: Normal rate. Pulmonary: Effort: Pulmonary effort is normal. Musculoskeletal: Cervical back: Normal range of motion. Skin: General: Skin is warm. Findings: Laceration present. Neurological: Mental Status: He is alert and oriented to person, place, and time. Motor: Motor function is intact. Gait: Gait is intact. Wound cleansed with peroxide and all visible foreign material was removed. Surgicel placed in laceration due to bleeding. Wound edges reapproximated with 4 ryder. Return for staple removal in 5-7 days. ASSESSMENT/PLAN: 1. Laceration of scalp, initial encounter - ICD9: 873.0, ICD10: S01.01XA - Return for staple removal in 5-7 days. - Discussed red flag symptoms to report to ER for head injury as well as signs/sympotms of infection. - TDAP VACCINE AGE 7+ IM TERRY Marquez student TEACHING PROVIDER (Physician/PA/GUITAR TEACHER) NOTE OF PERSONAL INVOLVEMENT IN CARE: I have personally seen and examined the patient and performed the medical decision-making components. I have reviewed the Advanced Practice Registered Nurse (GUITAR TEACHER) Student's documentation and verified the findings in the note as written. Any additions or changes are noted in bold/italics. Signature: Raine Alejandre Date: 01/12/2022 Time: 4:07 PM documented in this encounter [facility] Instructions 01-12-2022 Patient Instructions Note Date & Type Note Facility 01-12-2022 Instructions Marcia Leal - 01/12/2022 3:49 PM EDT ASSESSMENT/PLAN: 1. Laceration of scalp, initial encounter - ICD9: 873.0, ICD10: S01.01XA - Return for staple removal in 5-7 days. - Discussed red flag symptoms to report to ER for head injury as well as signs/sympotms of infection. - TDAP VACCINE AGE 7+ IM TERRY Marquze student HEAD INJURY GENERAL INFORMATION: A mild head injury is caused by a blow to the head. A head injury can cause slow bleeding or other problems inside the head that may not be seen at first. INSTRUCTIONS: 1. The doctor feels that you or your child can be watched safely at home. There was no evidence of a serious problem upon initial examination, but it is possible for more serious symptoms to develop later. 2. If you are the patient, you must have someone stay with you for the next 24 hours to watch for symptoms. This person must be able to read and understand these instructions. If he has any questions about them, he can call us at [phone]. If your child is the patient, you must observe him or her for the next 24 hours to watch for symptoms. The patient should be awakened every ____ hours to check for the symptoms listed at the bottom of this page. 3. You or your child should rest in bed until feeling better. Normal activities can be resumed at that time. 4. Drink only clear liquids (water, soft drinks, or apple juice) until there has been no vomiting for at least 6 hours. Adults should not drink alcohol or take narcotic medication until the period of observation is over. 5. Vont-dvi-negqtlu pain medication such as acetaminophen (Tylenol) or ibuprofen (Motrin, Advil, Pediaprofen) may be taken for headache or other discomfort. If other medications are normally taken, discuss with the doctor if you should continue to take them or give them to the injured child during recovery. SYMPTOMS TO RETURN IMMEDIATELY TO THE ED FOR: 1. Inability to wake up completely. 2. Inability to answer simple questions. Make them appropriate to the patient's age: What is your name? What is the dog's name? What day is it? Who am I? 3. Increased headache despite pain medication, or neck stiffness. 4. Changes in behavior or doesn't recognize family or friends. 5. Vomiting continuing after 8 hours or starting later than the first few hours after injury. 6. Pupils (black center of the eye) that are different sizes. 7. Difficulty walking, talking, moving arms or legs, or seeing. 8. Seizures (convulsions). documented in this encounter [facility] Evaluation + Plan note 12-05-2021 LaboratoryRadiology Note Date & Type Note Facility 12-05-2021 Evaluation + Plan note Future Scheduled TestsMicroalbumin Level Urine 12/05/21XR Spine Lumbar W/Obliques 4 Views 12/05/21 [facility] History of Past illness Narrative 10-17-2015 Note Date & Type Note Facility documented as of this encounter (statuses as of 01/12/2022) [facility] Evaluation note Note Date & Type Note Facility documented in this encounter [facility] Hospital course Narrative Note Date & Type Note Facility Hospital course Narrative No data available for this section [facility] Hospital Discharge instructions Note Date & Type Note Facility Hospital Discharge instructions No data available for this section [facility] Progress note Note Date & Type Note Facility Progress note No data available for this section [facility] Summary Purpose Family History No Family History Records FoundNo Family History Records FoundNo Family History Records Found Advance Directives No Advanced Directives Records FoundDocuments on File Type Date Recorded 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 Some of theinformation contained on this summary may be confidential. Thisinformation should be kept in your records and should be shared with yourregular doctor.These instructions explain what you or your manager managed care need to do tocontinue your care at home or at another healthcare facility? Please go over these instructions with your nurse and manager managed care.? If you are not sure about something, please ask. ----- Highest Readmission Risk Score: 5The 30 day readmissions risk score is derived from a (more content not included)... Additional Source Comments (unrecognized sect ion and content) No Status Records FoundNo Status Records FoundNo Status Records Found INFORMATION SOURCE (unrecogn ized section and content) DATE CREATED AUTHOR AUTHOR'S ORGANIZ ATION 12/17/2021 [facility] ([place]) DATE CREATED AUTHOR AUTHOR'S ORGANIZ ATION 02/02/2022 [facility] Care Team (unrecognized sect ion and content) Source Comments (unrecognize d section and content) In the event this informatio n is protected by the Federal Confidentiality of Alcohol and Drug Abuse Patient Records regulations: The Federal rules restrict any use of the information to criminally investigate or prosecute any alcohol or drug abuse patient.[facility] Reason for Visit (unrecogniz ed section and content) FOR RECORDS PERTAINING TO PATIENTS WHO ARE OR HAVE BEEN ENROLLED IN A CHEMICAL DEPENDENCY/SUBSTANCEABUSE PROGRAM, SOME INFORMATION MAY BE OMITTED. This clinical summary was aggregated from multiple sources. Caution should be exercised in using it in the provision of clinical care. This summary normalizes information from multiple sources, and as a consequence, information in this document may materially change the coding, format and clinical context of patient data. In addition, data may be omitted in some cases. CLINICAL DECISIONS SHOULD BE BASED ON THE PRIMARY CLINICAL RECORDS. [employer] [facility]. provides no warranty or guarantee of the accuracy or completeness of information in this document.
[2023-08-15] MEDS: Lactated Ringers 1,000 ML 15 ML IV (06:23)
--- NOTE | 2023-08-15 06:30 | RAD_ITS ---
PROCEDURE: L4-L5 and L5-S1 fusion. DATE OF EXAMINATION: August 15, 2023. INDICATION: Male, 58 years old. Chronic low back pain. FLUOROSCOPY TIME (if supplied): (2 minutes and 2 seconds) minutes/seconds. 46.05 mGy RAD/Lumbar Spine 2 or 3 Views IMPRESSION: Intraoperative imaging provided for L4-L5 and L5-S1 fusion. Electronically Signed: Steven Spaulding MD at 15:06 EST ,
--- NOTE | 2023-08-15 07:04 | PCM.OPRPT ---
Report of Operation Date of Procedure: 08/15/23 Description of Surgical Findings:: Preop diagnosis: 1. Lumbar stenosis, L3-4, L4-5 with spondylosis 2. Lumbar degenerative disc disease L3-4, L4-5 Postop diagnosis: 1. Lumbar stenosis, L3-4, L4-5 with spondylosis 2. Lumbar degenerative disc disease L3-4, L4-5 Procedures performed: 1. L3-4 posterior lumbar interbody fusion 2. L4-5 posterior lumbar interbody fusion 3. Insertion of intervertebral biomechanical device x2 4. Structural allograft for spinal fusion 5. L3 bilateral laminectomies, foraminotomies, facetectomies, decompression of bilateral nerve roots 6. L4 bilateral laminectomies, foraminotomies, facetectomies, decompression of bilateral nerve roots 7. L3-4, L4-5 posterolateral fusion 8. Pedicle screw fixation 9. Local autograft for spinal fusion 10. Neuro monitoring bilateral upper and bilateral lower extremities Statement of medical necessity: The patient is a 58-year-old male with intractable back and leg pain. Image studies confirm the above diagnoses. They have failed conservative treatments and have opted for operative intervention understanding the risk to include but not limited to infection, bleeding, damage to nerves arteries and veins, possibility of spinal fluid leak, nonunion, hardware failure, continued pain, need for further surgery, deep vein thrombosis, pulmonary embolism, heart attack, risk of stroke or . Description of the procedure: The patient was identified in the preoperative holding area. There they received preoperative IV antibiotics and was then transferred to the operative suite. Once in the operative suite after general endotracheal anesthesia was established, the patient was positioned prone on the [place] operating table. All bony prominences were padded accordingly. The lumbar spine was prepped and draped in a standard fashion. Bear hugger's were not turned on until the drapes were placed and sealed with Ioban. A midline incision was made and taken down to the fascia. The fascia was divided and subperiosteal dissection was taken down to the level of the transverse processes of L3, L4, and L5. Deep retractors were placed. A bone scalpel was used to make cuts in the lamina and then a series of rongeurs and Kerrisons were used removing the spinous process and lamina of L3 and L4. Then facetectomies of greater than 50% were performed as well as foraminotomies at L3-4 and L4-5 bilaterally decompressing the bilateral nerve roots. Given the severity of the stenosis I needed to perform wide bilateral laminectomies and near complete facetectomies in order to decompress the neural elements. Disc created instability necessitating the fusion. I then proceeded with interbody fusion. The nerve roots and dura were identified and retracted medially. A knife was utilized to perform an annulotomy at L3-4. Endplate elevators, curettes, and pituitaries were utilized to remove disc material. Endplates were prepared with a rasp. An appropriate sized intervertebral peek cage device measuring 11 mm was packed with structural allograft and impacted into position completing the posterior lumbar interbody fusion at the L3-4 level. A knife was utilized to perform an annulotomy at L4-5. Endplate elevators, curettes, and pituitaries were utilized to remove disc material. Endplates were prepared with a rasp. An appropriate sized intervertebral peek cage device measuring 10 mm was packed with structural allograft and impacted into position completing the posterior lumbar interbody fusion at the L4-5 level. I then proceeded with pedicle screw fixation. Starting points were found at the junction of the superior articular process and transverse processes of L3, L4, and L5. A power bur was used for the starting points. Pedicle probes were placed bilaterally and then 6.5 x 55 mm screws were placed bilaterally at L3, L4, and L5. The screws were tested with intraoperative neurophysiologic monitoring and tested within normal limits. Connector rods were applied and secured with set screws. I then proceeded with the posterolateral fusion. This was accomplished by decorticating the transverse processes bilaterally at L3, L4, and L5. This decorticated bone was then bridged with local autograft from the decompression as well as morselized cancellous allograft completing the posterolateral fusion of the L3-4 and L4-5 level. The incision was thoroughly irrigated. Tisseel was placed over the dura as a hemostatic agent. The fascia was closed with #1 Vicryl, subcutaneous with 2-0 Vicryl and skin with 2-0 nylon. A sterile dressing was applied with Prineo, 4 x 4's ABD and tape. Sponge instrument and needle counts were correct at the end of the case. Neurophysiologic monitoring was maintained at baseline throughout the duration of the case. The patient was extubated and taken to the PACU without incident Surgeon: Edwin Alarcon Type of Anesthesia: General Estimated Blood Loss (mL): 500 cc Fluids Replaced: 1800 cc Grafts/Implants Used: Unified spine Complications None Admit VTE Documentation VTE Present on Admission: No
--- NOTE | 2023-08-15 07:04 | PCM.PN.ORT ---
Subjective Subjective Seen and examined postop. Resting comfortably. No complaints. Pain controlled Objective Data Objective Data Vital Signs: Vital Signs Temp Pulse Resp BP Pulse Ox O2 Del Method 98.4 F 78 16 118/78 97 Room Air 08/15/23 06:18 08/15/23 06:18 08/15/23 06:18 08/15/23 06:18 08/15/23 06:18 08/15/23 06:18 Oxygen Delivery Method Room Air Weight: 226 lb 13.69 oz Body Mass Index (BMI) 29.9 Physical Exam Const alert, oriented x3 and no apparent distress General Appearance: cooperative, comfortable and well kempt HEENT normocephalic and head/scalp atraumatic Eyes EOMs intact bilaterally and conjunctivae normal Neck full ROM General: normal visual inspection Chest inspection of chest normal and palpation of chest normal Resp normal respiratory effort and normal air movement Effort and Inspection: able to speak in complete sentences Cardio regular rate, regular rhythm and peripheral pulses 2+ throughout GI soft to palpation, non-tender and non-distended Back/Spine Back/Spine Narrative: Dressing clean dry and intact Cervical Spine: cervical ROM normal Thoracic Spine / Upper Back: normal to inspection Lumbar Spine / Lower Back: normal to inspection Extremity normal to inspection, full ROM, normal capillary refill, no clubbing, cyanosis or edema and no calf tenderness Skin no rashes or lesions noted General Skin Exam: no breakdown Neuro oriented x3, CN's II-XII intact bilaterally, moves all extremities, no focal motor deficits, no sensory deficits noted and deep tendon reflexes 2+ bilaterally Motor Exam: muscle tone normal throughout Assessment & Plan Assessment/Plan (1) Lumbar stenosis: PLAN: Okay to admit See orders Discharge planning, likely home tomorrow
--- NOTE | 2023-08-15 07:07 | PCM.DC.SUM ---
Providers Date of Admission: 08/15/23 Primary Care Physician: Dr. David Crane DO Reason For Visit: LUMBAR 3 - LUMBAR 4, LUMBAR 4 - LUM Diagnosis Discharge Diagnosis (1) Lumbar stenosis: Status: Acute Code(s): M48.061 - Spinal stenosis, lumbar region without neurogenic claudication Plan: Okay to admit See orders Discharge planning, likely home tomorrow Medications at Discharge Home Medications losartan 100 mg tablet 100 mg PO DAILY BP 01/03/22 amlodipine 2.5 mg tablet 2.5 mg PO QHS BP 07/30/23 ascorbic acid (vitamin C) 500 mg tablet (C-500) 500 mg PO DAILY SUPPLEMENT 07/30/23 multivitamin (Daily Multi-Vitamin tablet) 1 tab PO DAILY SUPPLEMENT 07/30/23 hydrocodone-acetaminophen 5-325mg 5mg-325mg 1 tab PO Q6H 7 days #28 tabs 08/15/23 Hospital Course Operations - (L3-4, L4-5 posterior lumbar interbody fusion, decompression, posterior spinal fusion with instrumentation, use of allograft) Summary of Care Provided Minutes Spent on Discharge: 15 Hospital Course: The patient is a 58-year-old male who underwent L3-5 fusion on 08/15/2023. He was subsequently admitted. The hospitalist was consulted for medical management. The patient progressed well. His pain was controlled and he was mobilizing well. No significant medical issues were reported. He was subsequently discharged home on 08/16/2023 to follow-up with Dr. Alarcon in 3 weeks Physical Exam Const alert, oriented x3 and no apparent distress General Appearance: cooperative and comfortable Neck full ROM General: normal visual inspection Resp normal respiratory effort and normal air movement Effort and Inspection: able to speak in complete sentences Cardio regular rate and peripheral pulses 2+ throughout GI soft to palpation, non-tender and non-distended Back/Spine Back/Spine Narrative: Dressing clean dry and intact. Incision well-approximated with interrupted sutures in place. No tenderness erythema drainage or fluctuance Cervical Spine: cervical ROM normal Thoracic Spine / Upper Back: normal to inspection Lumbar Spine / Lower Back: normal to inspection Extremity normal to inspection, full ROM, normal capillary refill, no clubbing, cyanosis or edema and no calf tenderness Skin no rashes or lesions noted General Skin Exam: no breakdown Neuro oriented x3, CN's II-XII intact bilaterally, moves all extremities, no focal motor deficits, no sensory deficits noted and deep tendon reflexes 2+ bilaterally Motor Exam: strength 5/5 throughout and muscle tone normal throughout Weight / BMI Weight Weight: 226 lb 13.69 oz Body Mass Index (BMI) 29.9 D/C Instructions Discharge Diet: No restrictions Additional Activity Instructions: Wear back brace at all times. No repetitive bending twisting or lifting greater than 5 pounds. Okay to remove brace to sleep Call your doctor if your incision/area has: Continuous Slow Oozing, Sudden Increased Bleeding, Increased Pain/ Swelling, Increased Redness, Foul Smelling Discharge and Swelling at the incision site Call your doctor if you observe: Fever of 101 or Higher, Coldness, Increased Pain, Numbness or Tingling, Change in Color, Inability to urinate, Inability to have a bowel movement, Using more than 1 pad per hour, Shortness of breath, Dizziness, Fainting spells, Swelling in the ankles, Chest pain, Prolonged hiccupping, Increased palpitations (irregular heartbeat), Calf discomfort and Uncontrolled pain Cleanse incision/area with: Do not get Incision Wet and Keep Dressing Clean & Dry Additional Dressing/Incision Instructions: Change dressing daily with gauze and tape. Do not put anything else on the incision Additional Instructions: 1. During your procedure, you received sedation through your IV. Please follow these instructions for the next 24 hours: Do not drive a motor vehicle, do not drink any alcoholic beverages, and do not sign any legal documents or make personal or business decisions. A responsible adult should stay with you at least 6 hours after the procedure. 2. Keep your surgical site/incision clean and the dressing dry and intact. You may use an ice pack at the surgical site to reduce any swelling or discomfort. 3. Monitor the incision site for any signs or symptoms of infection. Watch for redness, excessive swelling or drainage, or continued pain at the incision site after 3 days. Contact your physician immediately for a fever, chills or a temperature of 101.5? F or greater. 4. Take your medication exactly as prescribed by your physician. Do not attempt to wean yourself off any of your medications even though your pain is improving. This process needs to be carefully monitored by your doctor. Take any antibiotics prescribed exactly as directed and until they are gone. 5. Avoid stretching, bending, pulling, twisting or any sudden movements. Do not bend or twist at the waist. Wear back brace at all times 6. No lifting greater than 5 pounds. 7. Do not operate a motor vehicle, equipment or a power tool while taking pain medication 8. Do not have any manipulation done by a chiropractor or any other physician without first consulting with the surgeon 9. Please contact our office if you are even scheduled for a CT scan or an MRI. 10. Please call us if you have any questions, problems or concerns. Please Follow Up With: Edwin Alarcon DO When: 3 weeks Meaningful Use Info Meaningful Use Diagnoses (Choose all that apply): None applicable Discharge Plan Admission Admit Date/Time: 08/15/23 05:52 Attending Provider: Edwin Alarcon Primary Care Provider: David Crane Consulting Providers: Chanelle Vargas Instructions Additional Instructions / Restrictions: 1. During your procedure, you received sedation through your IV. Please follow these instructions for the next 24 hours: Do not drive a motor vehicle, do not drink any alcoholic beverages, and do not sign any legal documents or make personal or business decisions. A responsible adult should stay with you at least 6 hours after the procedure. 2. Keep your surgical site/incision clean and the dressing dry and intact. You may use an ice pack at the surgical site to reduce any swelling or discomfort. 3. Monitor the incision site for any signs or symptoms of infection. Watch for redness, excessive swelling or drainage, or continued pain at the incision site after 3 days. Contact your physician immediately for a fever, chills or a temperature of 101.5? F or greater. 4. Take your medication exactly as prescribed by your physician. Do not attempt to wean yourself off any of your medications even though your pain is improving. This process needs to be carefully monitored by your doctor. Take any antibiotics prescribed exactly as directed and until they are gone. 5. Avoid stretching, bending, pulling, twisting or any sudden movements. Do not bend or twist at the waist. Wear back brace at all times 6. No lifting greater than 5 pounds. 7. Do not operate a motor vehicle, equipment or a power tool while taking pain medication 8. Do not have any manipulation done by a chiropractor or any other physician without first consulting with the surgeon 9. Please contact our office if you are even scheduled for a CT scan or an MRI. 10. Please call us if you have any questions, problems or concerns. Discharge Orders/Prescriptions Prescriptions: New hydrocodone-acetaminophen 5-325 mg tablet 1 tab PO Q6H 7 Days Qty: 28 0RF Continued losartan 100 mg tablet 100 mg PO DAILY Patient Comments: TAKE 1 TABLET BY MOUTH EVERY DAY amlodipine 2.5 mg tablet 2.5 mg PO QHS multivitamin [Daily Multi-Vitamin] Tablet 1 tab PO DAILY ascorbic acid (vitamin C) [C-500] 500 mg tablet 500 mg PO DAILY Referrals / Follow Up: David Crane DO [Primary Care Provider] - Disposition Disposition (needs filled in before D/C Order can be placed): Home, Self Care
[2023-08-15] MEDS: Cefazolin 2 GM in 0.9% Normal Saline (100mL Bag) 100 ML IV (07:45)
[2023-08-15] MEDS: Heparin 10,000 UNITS/10 ML Vial 10000 UNITS (08:05)
[2023-08-15] MEDS: THROMBIN (RECOMBINANT) 20,000 UNIT VIAL 20000 UNIT TOPICAL (08:42)
[2023-08-15] MEDS: Cefazolin 2 GM in 0.9% Normal Saline 100 ML IV (11:47)
[2023-08-15] MEDS: Bupivacaine 0.25% 30 ML Vial (12:04)
--- NOTE | 2023-08-15 12:49 | SUR.PHASEI ---
PT HAD RED SPLOTCHY RASH ON CHEST MARKED BORDERS WITH SKIN MARKER, WILL MONITOR FOR CHANGES.
--- NOTE | 2023-08-15 14:24 | SUR.PHASEI ---
REDNESS ON CHEST IS RESOLVING ON ITS OWN.
[2023-08-15] MEDS: Lactated Ringers 1,000 ML 100 ML IV (15:56)
[2023-08-15] MEDS: Acetaminophen 500 MG Tablet 1000 MG PO ×2 (15:56→20:19)
[2023-08-15] MEDS: Ensure Surgery 237 ML LIQUID PO (17:24)
[2023-08-15] MEDS: Cefazolin 1 GM/50 ML BAG IV (20:00)
[2023-08-15] MEDS: CARBOXYMETHYLCELLULOSE SODIUM 1 DRP DROPS 2 DRP OPHTHALMIC (20:00)
[2023-08-15] MEDS: oxyCODONE 5 MG Tablet PO (20:18)
[2023-08-16] VITALS (7 sets, daily range): BP systolic 97–127; BP diastolic 54–68; PULSE 74–88; RESP 16–18; TEMP 36.6–37.2; O2SAT 94–96
[2023-08-16] MEDS: 0.9% Saline Lock 10 ML Syringe IV ×2 (00:04→04:31)
[2023-08-16] MEDS: Morphine 4 MG/ML Syringe IV ×2 (00:04→04:30)
[2023-08-16] MEDS: CARBOXYMETHYLCELLULOSE SODIUM 1 DRP DROPS 2 DRP OPHTHALMIC (00:04)
[2023-08-16] MEDS: Lactated Ringers 1,000 ML 100 ML IV (02:36)
[2023-08-16] MEDS: oxyCODONE 5 MG Tablet PO ×4 (02:36→16:33)
[2023-08-16] MEDS: Cefazolin 1 GM/50 ML BAG IV (04:25)
[2023-08-16] MEDS: Acetaminophen 500 MG Tablet 1000 MG PO ×2 (04:26→14:47)
[2023-08-16] MEDS: Multivitamins,Therapeutic Tablet 1 TABLET PO (08:49)
[2023-08-16] MEDS: Ascorbic Acid 500 MG Tablet PO (08:49)
[2023-08-16] MEDS: Ensure Surgery 237 ML LIQUID PO ×3 (08:49→16:32)
--- NOTE | 2023-08-16 09:05 | CASEMGMT ---
GENESIS KENT Assessment: Face to Face with pt for initial transition planning/care coordination assessment. RN DONTE introduced self and role at [facility], pt voices understanding and consents to assessment. Pt is A&O x4 and answers all questions appropriately at this time. Pt lying in bed in no distress. Care providers, pharmacy, and demographics verified/updated. Admitting Dx: lumbar stenosis PCP:Rosa Maria Specialists:aileen Alarcon Pharmacy: [facility] Retail Insurance: MMO Prescription Benefit: yes LNOK: Miriam Wolf, Living Arrangements: Pt lives with and adult son in a single story home with 1 step to enter. Pt reports he was I in ADL's and denies concerns at home. Transportation: Pt has not been driving since June, pt provides transportation. DME:crutches, walker, polar cube, cane HHC/SNF: Pt has had HHC in the past, cannot recall name. Denies hx of SNF. Pt states no concerns with going home at time of dc. Pt states no further concerns/needs. CM to follow. Advised pt to ask CM if any further question/concerns/needs arise, voices understanding. Pt Goal: Home Plan: Home, pending therapy eval
--- NOTE | 2023-08-16 10:07 | PHA.DC_ITS ---
Pharmacy [facility] has performed discharge medication reconciliation and counseling for this patient. The patient's discharge medication list was reviewed for discrepancies and discrepancies were resolved. The patient was counseled on the following discharge medications and changes in medications for homegoing were reviewed. 1. NORCO The Reason for Use, instructions for use, and potential side effects were reviewed for all new medications. The patient's questions regarding all of their medications were answered. The patient was able to verbally demonstrate an understanding of their discharge medications. Medications at Discharge Home Medications losartan 100 mg tablet 100 mg PO DAILY BP 01/03/22 amlodipine 2.5 mg tablet 2.5 mg PO QHS BP 07/30/23 ascorbic acid (vitamin C) 500 mg tablet (C-500) 500 mg PO DAILY SUPPLEMENT 07/30/23 multivitamin (Daily Multi-Vitamin tablet) 1 tab PO DAILY SUPPLEMENT 07/30/23 hydrocodone-acetaminophen 5-325mg 5mg-325mg 1 tab PO Q6H 7 days #28 tabs 08/15/23
--- NOTE | 2023-08-16 16:26 | PCM.PN.HOSP ---
Reason for Visit Reason for Visit: Diagnoses Spinal stenosis, lumbar region without neurogenic claudication (08/15/23) Encounter for other preprocedural examination (08/15/23) Subjective Subjective Doing well, no significant issues overnight. Pain is well-controlled and he is looking forward to getting discharged today. He does not have any real complaints at this time Objective Data Objective Data Vital Signs: Vital Signs Temp Pulse Resp BP Pulse Ox O2 Del Method O2 Flow Rate 97.8 F 74 18 109/66 96 Room Air 3 08/16/23 12:48 08/16/23 12:48 08/16/23 12:48 08/16/23 12:48 08/16/23 12:48 08/16/23 12:48 08/16/23 08:41 Oxygen Flow Rate (L/min) 3 Oxygen Delivery Method Room Air Weight: 234 lb Body Mass Index (BMI) 29.9 Intake & Output: Intake and Output for Last 24 Hours 08/15/23 08/16/23 08/17/23 03:59 03:59 03:59 Intake Total 3436.50 / 3436.50 1440.00 / 1440.00 Output Total 545 / 545 200 / 200 Balance 2891.50 / 2891.50 1240.00 / 1240.00 Physical Exam Narrative General: Alert, Oriented x3, Cooperative, No apparent distress HEENT: Atraumatic, PERRLA, EOMI, Normocephalic Oral: Moist Mucosa Neck: Supple, No JVD Extremities: No edema, Capillary Refill Less than 3 Seconds Skin: No rashes, No breakdown, dressing CDI Neurological: No focal neurological deficits, Motor Exam 5/5 strength throughout, Sensory exam intact to light touch and pain Psych/Mental Status: Normal Affect, Appropriate Assessment & Plan Assessment/Plan (1) Lumbar stenosis: (2) Status post lumbar spinal fusion: PLAN: Plan 1. Lumbar stenosis status post lumbar spinal fusion with laminectomies bilaterally at L3 and L4 on 08/15/2023 ? Pain management per primary ? PT/OT ? Discharge planning per primary ? Medically stable for discharge 2. Hypertension ? Blood pressures have been stable ? Continue with his home blood pressure medications and follow-up as an outpatient with his PCP for monitoring Charges/Coding Visit Charges Inpatient E&M: 82056 Subs Hosp L1
== END 2023-08-16 16:43 | disposition home or self-care (01) | DRG 455 ==
LOC: ACINP 07:11 → MS3 13:34
PROVIDERS: Admitting Provider Orthopaedic Surgery; PCP Preventive Medicine Occupational Medicine; Visit Provider Orthopaedic Surgery
PROC: 0SG10AJ Fusion of 2 or more Lumbar Vertebral Joints with Interbody Fusion Device, Posterior Approach, Anterior Column, Open Approach (ICD-10-PCS; CPT 22630; principal; 2023-08-15 07:00)
DX: M48.061 Spinal stenosis, lumbar region without neurogenic claudication (principal); E66.9 Obesity, unspecified; I10 Essential (primary) hypertension; M47.816 Spondylosis without myelopathy or radiculopathy, lumbar region; M51.36 Other intervertebral disc degeneration, lumbar region; Z68.30 Body mass index [BMI] 30.0-30.9, adult
CPT/HCPCS: 36415; 71046; 72100; 76000; 85610; 85730; 93005; 94668; 97162; 99252; C1713; J7120; A4216; G0463; J2405

== ENCOUNTER → 2024-07-25 | Outpatient (CLI) | payer OTHER, SELFPAY ==
[2024-07-25 09:01] LABS: Hematocrit 41.1 % (40-54); Hemoglobin 14.4 g/dL (13.0-16.5); Mean Corpuscular Volume 88.6 fL (80-94); Platelet Count 348 K/mm3 (150-450); RBC Distribution Width CV 12.3 % (11.6-14.6); RBC Distribution Width SD 39.6 fl (35.1-43.9); Red Blood Count 4.64 M/mm3 (4.6-6.2); White Blood Count 5.9 K/mm3 (4.4-11.0)
[2024-07-25 09:29] LABS: ALB/GLOB Ratio 1.1 RATIO (0.9-2.4); AST(SGOT) 30 U/L (15-37); Alanine Aminotransfer ALT/SGPT 38 U/L (16-61); Albumin, Serum 3.7 g/dL (3.2-5.0); Alkaline Phosphatase 90 U/L (45-117); Anion Gap 6 (5-15); BUN 14 mg/dL (7-18); BUN/Creat Ratio 15.5 RATIO (10-20); Calcium,Total 8.9 mg/dL (8.5-10.1); Chloride 109 mmol/L (98-107); Cholesterol 180 mg/dL (200); Creatinine, Serum 0.91 mg/dL (0.70-1.30); EST Glomerular Filtration Rate 90 mL/min (>60); Est Glom Filt Rate - Afr Amer 109 mL/min (>60); Globulin 3.3 g/dL (2.2-4.2); Glucose 111 mg/dL (74-106); High Density Lipoprotein 46 mg/dL; PSA,Total - Annual Screen 0.31 ng/mL (0.00-4.00); Potassium 4.5 mmol/L (3.5-5.1); Sodium Level 138 mmol/L (136-145); Triglycerides 205 mg/dL; Very Low Density Lipoprotein 41 mg/dL (5-40)
== END | disposition home or self-care (01) ==
LOC: LAB 08:29
PROVIDERS: PCP Preventive Medicine Occupational Medicine; Referring Provider Preventive Medicine Occupational Medicine; Visit Provider Preventive Medicine Occupational Medicine
DX: I10 Essential (primary) hypertension (principal); Z13.0 Encounter for screening for diseases of the blood and blood-forming organs and certain disorders involving the immune mechanism; Z13.220 Encounter for screening for lipoid disorders; Z12.5 Encounter for screening for malignant neoplasm of prostate
CPT/HCPCS: 36415; 80053; 80061; 84153; 85027; G0103